=== PATIENT | male | born 1985 | race Two or more races ===

== ENCOUNTER 2024-10-18 22:17 | Emergency (ER) | payer OTHER, SELFPAY ==
[2024-10-18 22:18] VITALS: BMI 29.8
== END 2024-10-18 22:24 | disposition left against medical advice (07) ==
LOC: SERX 22:32
PROVIDERS: Emergency Provider Emergency Medicine
DX: Z53.21 Procedure and treatment not carried out due to patient leaving prior to being seen by health care provider (principal)

== ENCOUNTER 2025-01-21 16:28 | Emergency (ER) | payer OTHER, SELFPAY ==
--- NOTE | 2025-01-21 16:44 | XR_ITS ---
Examination: CT lumbar spine, without contrast. 2-D sagittal reconstructions. 2-D coronal reconstructions. 3-D reconstructions. Date and time of exam:January 21, 2025 1716 hours INDICATIONS: Lower back pain today CTDI: vol (mGy):20.2 DLP: (mGycm):909 Technique: Multiple 1.25 mm axial sections of the lumbar spine without intravenous contrast have been obtained. 2-D sagittal and coronal reconstructions have been obtained. 3-D reconstructions have been obtained. Low dose protocols were performed. One or more of the following dose reduction techniques were used; automated exposure control, adjustment of the mA and/or KV according to patient size, use of iterative reconstruction technique. Findings: Adequate alignment lumbar vertebral bodies on the lateral view Mild disc narrowing posteriorly L5-S1 No spondylolisthesis Lumbar pedicles, laminae, transverse and posterior spinous processes are intact L5-S1 5 mm central lumbar disc bulge contiguous with both right and left S1 nerve roots, axial image 104 L4-L5 3 mm central lumbar disc bulge L2-L3 3 mm central lumbar disc bulge L2-L3 2 mm right paracentral disc bulge L1-L2 no disc protrusion IMPRESSION: L5-S1 5 mm central lumbar disc bulge contiguous with both the right and left S1 nerve roots Smaller lumbar disc bulges as above Consider elective MRI lumbar spine without contrast follow-up
--- NOTE | 2025-01-21 16:45 | EDNOTE_ITS ---
ED General RME/HPI General Chief complaint: Back Pain/Injury Stated complaint: BACK PAIN Time Seen by Provider: 01/21/25 16:43 Arrival date/time: 01/21/25 16:28 CC: Low back pain HPI patient presents the ER via EMS after 1 hour of low back pain abrupt onset has a history of back pain in the past last [place] was approximately 8 months ago. [facility] secondary to [facility] pain. Patient denies bowel or bladder symptoms saddle anesthesia numbness tingling or weakness in the lower extremity. EMS reports stable vital signs and route patient is awake alert oriented nontoxic-appearing in mild distress. Secondary to pain. Related Data Previous Rx's ?Medication ?Instructions ?Recorded ibuprofen 800 mg tablet 800 mg PO Q8H #30 tabs 05/02 Allergies Allergy/AdvReac Type Severity Reaction Status Date / Time No Known Allergies Allergy Verified 05/02/20 15:40 Review of Systems Review of Systems Narrative Review of Systems: GEN: No fever, no chills, no weight loss EYES: No discharge, no visual changes, no pain HEENT: No ear pain, no congestion, no sore throat PULM: No shortness of breath, no cough, no congestion CV: No chest pain, no dyspnea on exertion, no palpitations GI: No nausea, no vomiting, no diarrhea, no pain, no constipation : No frequency, no urgency, no dysuria MUSC/SKEL: No joint pain, + back pain SKIN: No rash PSYCH: No hallucinations, no depression HEME/LYMPH: No easy bleeding or bruising tendencies NEURO: No weakness, no headache Past Medical History Past Medical History CARDIAC: Negative Congestive Heart Failure RESPIRATORY: Negative Chronic Obstructive Pulmonary Disease (COPD) GENITOURINARY: Negative Renal Disease ENDOCRINE: Negative Diabetes Mellitus Type 1 or Diabetes Mellitus Type 2 Social History SMOKING STATUS: Never smoker ED Exam Narrative Physical exam: [General: In moderate discomfort but not in any acute distress Head normocephalic HEENT: Eyes: Pupils are PERRLA EOMs are intact mouth pink dry moist membranes uvula is midline swallow symmetrical all the subsystems of HEENT are within acceptable limits Neck is supple nontender Chest equal chest rise nontender to palpation Respiratory: Clear to auscultation no wheezes crackles or rubs CV: Rate rhythm is regular no murmurs rubs or clicks Abdomen is soft nontender no masses positive bowel sounds all 4 quadrants Back: No thoracic or cervical spine tenderness with palpation no lumbar thoracic or cervical paraspinal tenderness with palpation no lumbar spinous process with palpation Skin: Intact no petechiae rash induration ulceration or crepitus Extremities: Decreased range of motion including straight leg raise secondary to low back pain. Cap refill in all the digits less than 2 seconds. moving all other extremities against resistance cap refill less than 2 seconds neurosensory intact Neuro: Awake alert oriented x3 Glascow coma 15 no focal deficits] Course Quality Measures none Orders Category Date Time Status CT lumbar spine wo con Stat Exams 01/21/25 16:44 Completed Ketorolac [Toradol] Med 01/21/25 16:44 Discontinued 10 mg PO X1 ONE Vital Signs Vital signs: Vital Signs Temperature 98.6 F 01/21/25 17:05 Pulse Rate 72 01/21/25 17:05 Respiratory Rate 18 01/21/25 17:05 Blood Pressure 129/79 01/21/25 17:05 Pulse Oximetry (%) 96 01/21/25 17:05 Oxygen Delivery Method Room Air 01/21/25 17:05 [facility] Patient data External records reviewed:: [facility] previous records and EMS form Clinical information provided by:: patient and EMS Social determinants that could affect healthcare access:: none Patient has the following chronic illnesses:: Chronic back pain How is presenting disease/condition affected by chronic disease/condition?: exacerbated by Evaluation data The following diagnostics were reviewed and interpreted by me:: radiology exam(s) Lab and/or radiology exams considered but not ordered:: CT shows there might be minor nerve root impingement at L5-S1 but no other acute finding requires emergent or immediate intervention Interpretation Summary: Patient has gotten relief with the Toradol and is able to sit up and move around I am comfortable discharging the patient home with his on the condition he does not take ibuprofen or Aleve with these medications. Patient is agreement this plan [facility] to see if there is any degradation in the anatomy of his low back related to his pain. Patient also advised that if is a worsening of symptoms he is to return the emergency room immediately for further evaluation. Medications Medications considered but not ordered:: None Medication administrations:: Medication Administration History Discontinued Medications Ketorolac Tromethamine (Ketorolac 10 Mg Tablet) 10 mg PO X1 ONE Stop: 01/21/25 16:45 Last Admin: 01/21/25 18:21 Dose: 10 mg Documented By: GERARDO None Consultations Consultation(s) initiated? (list below): No Diagnosis Differential Diagnosis ED Complaint MDM: Vertebral body fracture transverse process fracture low back strain Most likely diagnosis given after review of the tests above:: Low back pain Admission Indicated Admission indicated?: not indicated Explain why admission is indicated or not indicated:: Stable for discharge Admission Request Was there a request for admission?: No Disposition Plan Disposition Plan: Discharge Discharge Attestation Discharge Attestation: The patient and all family members were given an opportunity to ask questions and understood the discharge instructions. Discharge instructions specifically effects, indications for sooner follow up or return to the emergency department, and the expected course of current diagnosis. Patient condition: Stable Medical Decision Making Differential Diagnosis Differential Diagnosis: Vertebral body fracture transverse process fracture low back strain Discharge Plan Plan Patient Disposition: HOME (Self Care) Patient condition on transfer: Stable Prescriptions/Referrals Prescriptions/Med Rec: No Action ibuprofen 800 mg tablet 800 mg PO Q8H Qty: 30 0RF Referrals: Remberto Bay MD [Physician] - In 1 week No Primary/Family,Physician [Primary Care Provider] - In 1 week Problem List Clinical Impression: Low back pain Patient/Caregiver Discharge Instructions Education Materials: ED Back and Neck Pain, General Additional Instructions: Take the medication as prescribed do not take ibuprofen or naproxen while you are taking this. Make sure you take it with food if there is worsening of symptoms stop the medication and follow-up with your primary care doctor return the emergency room immediately for further evaluation. Print Language: [place] Stand Alone Forms: Kelly Award Info., Work/School Release, Patient Portal Info Letter JUNE/JOHNNIE Supervising Physician MEGAN Supervising Physician: Octavio Flores ENP
[2025-01-21 17:05] VITALS: BP 129/79; PULSE 72; RESP 18; TEMP 37; O2SAT 96
--- NOTE | 2025-01-21 17:26 | PC.NURSE ---
PATIENT WITH COMPLAINT OF LOWER BACK PAIN, PATIENT WITH HISTORY OF SIGNIFICANT BACK PROBLEMS SECONDARY TO INCIDENTS. PATIENT BROUGHT IN BLS BY EMS DUE TO NOT ABLE TO WALK. PATIENT ON GURNEY WITH PAIN 8/10 ON PAIN SCALE.
[2025-01-21 18:15] VITALS: BP 129/81; PULSE 74; RESP 18; TEMP 36.8; O2SAT 97
[2025-01-21] MEDS: KETOROLAC 10 MG TABLET PO (18:21)
[2025-01-21 19:21] VITALS: BP 131/88; PULSE 64; RESP 18; TEMP 36.6; O2SAT 98
[2025-01-21 19:59] VITALS: RESP 18
== END 2025-01-21 20:00 | disposition home or self-care (01) ==
PROVIDERS: Emergency Provider Emergency Medicine
DX: M54.50 Low back pain, unspecified (principal)
CPT/HCPCS: 72131; 99284; A9270